=== PATIENT | female | born 1985 | race Caucasian/White ===

== ENCOUNTER 2017-12-19 21:53 | Emergency (ER) | payer MEDICAID ==
[2017-12-19] MEDS ORDERED: FAMOTIDINE 20 MG TABLET PO STA (22:38)
[2017-12-19] MEDS ORDERED: MAG HYDROX/AL HYDROX/SIMETH 30 ML UDC PO STA (22:38)
[2017-12-19] MEDS ORDERED: LIDOCAINE VISCOUS 2% 15 ML UDC MM STA (22:38)
[2017-12-19 22:39] LABS: BASOPHILS # (AUTO) 0.1 10^3/uL (0.0-0.1); BASOPHILS % (AUTO) 0.7 %; EOSINOPHILS # (AUTO) 0.2 10^3/uL (0.0-0.7); EOSINOPHILS % (AUTO) 1.6 %; HGB - HEMOGLOBIN 12.3 g/dL (12.0-16.0); LYMPHOCYTES # (AUTO) 3.9 10^3/uL (1.5-3.5); LYMPHOCYTES % (AUTO) 40.5 %; MEAN CORPUSCULAR HEMOGLOBIN 28.6 pg (27.0-31.0); MEAN CORPUSCULAR HGB CONC 33.3 g/dL (32.0-36.0); MEAN CORPUSCULAR VOLUME 86.1 fL (81.0-99.0); MEAN PLATELET VOLUME 7.7 fL (7.9-10.8); MONOCYTES # (AUTO) 0.6 10^3/uL (0.0-1.0); NEUTROPHILS % (AUTO) 51.2 %; PLT - PLATELET COUNT 350 10^3/uL (130-450); RED BLOOD COUNT 4.28 10^6/uL (4.20-5.40); RED CELL DISTRIBUTION WIDTH 13.5 % (12.0-15.0); WHITE BLOOD COUNT 9.7 x10^3/uL (4.8-10.8)
[2017-12-19 22:41] LABS: GLUCOSE, URINE (UA) NEGATIVE (NEGATIVE); KETONES,URINE (UA) NEGATIVE (NEGATIVE); LEUKOCYTE ESTERASE, URINE NEGATIVE (NEGATIVE); NITRITE,URINE NEGATIVE (NEGATIVE); OCCULT BLOOD,URINE LARGE (NEGATIVE); PH,URINE 5.5 PH (5.0-7.5); PROTEIN,URINE 100 mg/dL (NEGATIVE); UROBILINOGEN,URINE 0.2 (NORMAL) E.U./dL (NORMAL)
[2017-12-19 22:45] LABS: BILIRUBIN,URINE NEGATIVE (NEGATIVE); CLARITY,URINE HAZY (CLEAR); HCG UR QUAL NEGATIVE; ICTOTEST,URINE NEGATIVE
[2017-12-19 22:49] LABS: BACTERIA,URINE Moderate /HPF (None Seen); SQUAMOUS EPITHELIAL CELL,UR MOD Squamous (<= Few)
[2017-12-19 22:50] LABS: MUCUS,URINE Moderate Strands
--- NOTE | 2017-12-19 22:57 | ED Physician Documentation ---
PD HPI ABD PAIN - Stated complaint Stated Complaint: ABD PX - Chief complaint Chief Complaint: Abd Pain - History obtained from History obtained from: Patient, Family - History of Present Illness Timing - onset: How many weeks ago (2) Timing - details: Intermittant, Waxing and waning Quality: Sharp Location: Epigastric Worsened by: Eating Associated symptoms: Nausea. No: Fever, Vomiting, Hematemesis Similar symptoms before: Has not had sx before Recently seen: Not recently seen - Additional information Additional information: Patient is a 32 year old female presenting to the emergency department for abdominal pain. Patient states that it has been going on for the last two weeks. Patient states that it is in her epigastrum. patient states that it gets worse with eating. Review of Systems Ten Systems: 10 systems reviewed and negative Constitutional: denies: Fever, Chills Cardiac: denies: Chest pain / pressure, Palpitations Respiratory: denies: Dyspnea, Cough, Wheezing GI: reports: Abdominal Pain, Nausea. denies: Vomiting, Constipation, Diarrhea : denies: Dysuria, Frequency, Hesitancy PD PAST MEDICAL HISTORY - Past Medical History Past Medical History: Yes Psych: Anxiety - Past Surgical History Past Surgical History: Yes /PATIENT ASSESSMENT COORDINATOR: Tubal ligation - Present Medications Home Medications: Ambulatory Orders Medication Instructions Recorded Confirmed Sertraline [Zoloft] 100 mg PO DAILY 06/30/15 06/30/15 Lidocaine Viscous 2% [Xylocaine 5 ml MM Q4H #1 bottle 12/19/17 Viscous 2%] Ondansetron Odt [Zofran] 4 mg TL Q6H PRN #14 tablet 12/19/17 - Allergies Allergies/Adverse Reactions: Allergies Allergy/AdvReac Type Severity Reaction Status Date / Time No Known Drug Allergies Allergy Verified 12/19/17 22:02 - Social History Does the pt smoke?: No Smoking Status: Never smoker Does the pt drink ETOH?: No Does the pt have substance abuse?: No Substance Use and Type: Marijuana - Immunizations Immunizations are current?: Yes - POLST Patient has POLST: No PD ED PE NORMAL - Vitals Vital signs reviewed: Yes - General General: Alert and oriented X 3, No acute distress - HEENT HEENT: Atraumatic, Moist mucous membranes - Neck Neck: Supple, no meningeal sign - Cardiac Cardiac: RRR - Respiratory Respiratory: No respiratory distress - Abdomen Abdomen: Soft, Non tender, Non distended - Derm Derm: Normal color, Warm and dry - Extremities Extremities: No deformity - Neuro Neuro: Alert and oriented X 3 Eye Opening: Spontaneous - Psych Psych: Normal mood Results - Vitals Vitals: Vital Signs - 24 hr 12/19/17 21:59 Temperature 36.2 C L Heart Rate 72 Respiratory 16 Rate Blood Pressure 127/88 H O2 Saturation 100 Oxygen O2 Source Room air - Labs Labs: Laboratory Tests 12/19/17 12/19/17 22:10 22:31 WBC 9.7 RBC 4.28 Hgb 12.3 Hct 36.9 L MCV 86.1 MCH 28.6 MCHC 33.3 RDW 13.5 Plt Count 350 MPV 7.7 L Neut # 5.0 Lymph # 3.9 H [place] # 0.6 Eos # 0.2 Baso # 0.1 Absolute Nucleated RBC 0.01 Nucleated RBC % 0.1 Urine Color DARK YELLOW Urine Clarity HAZY Urine pH 5.5 Ur Specific [place] >=1.030 H Urine Protein 100 H Urine Glucose (UA) NEGATIVE Urine Ketones NEGATIVE Urine Occult Blood LARGE H Urine Nitrite NEGATIVE Urine Bilirubin NEGATIVE Urine Urobilinogen 0.2 (NORMAL) Ur Leukocyte Esterase NEGATIVE Urine RBC 11-25 H Urine WBC 0-3 Ur Squamous Epith Cells MOD Squamous H Urine Bacteria Moderate H Urine Mucus Moderate Strands Ur Microscopic Review INDICATED Urine Culture Comments NOT INDICATED Urine HCG, Qual NEGATIVE PD MEDICAL DECISION MAKING - ED course Complexity details: reviewed old records, reviewed results, re-evaluated patient , considered differential, d/w patient, d/w family ED course: Abhinav was seen and examined at bedside. patient was well appearing and in no acute distress. Patient's labs were drawn and urine was collected. Patient was treated with a GI cocktail with good relief. patient's diagnostics were within normal limits. patient required no further work up and was stable for discharge with outpatient follow up. Departure - Departure Disposition: 01 Home, Self Care Clinical Impression: Gastroesophageal reflux disease Condition: Good Instructions: ED GERD Follow-Up: Debbi Downey ARNP [Primary Care Provider] - Within 3 Days Prescriptions: Lidocaine Viscous 2% [Xylocaine Viscous 2%] 5 ml MM Q4H #1 bottle Ondansetron Odt [Zofran] 4 mg TL Q6H PRN #14 tablet PRN Reason: Nausea / Vomiting Comments: Your diagnostics today were within normal limits. there is no major abnormality. Your symptoms are likely secondary to gastritis. the first thing to do is to change your diet. You should decrease the amount of fried foods, fatty foods, alcohol and acidic foods. You should also heat smaller meals and not eat before going to bed. You should follow up with your doctor if your symptoms persist. You may return to the emergency department at any time for new, worsening or uncontrollable symptoms.
[2017-12-19 23:00] LABS: ALBUMIN 4.4 g/dL (3.2-5.5); ALBUMIN/GLOBULIN RATIO 1.3 (1.0-2.2); BILIRUBIN,TOTAL 0.6 mg/dL (0.2-1.0); CALCIUM 9.2 mg/dL (8.5-10.3); CREATININE 0.7 mg/dL (0.4-1.0); TOTAL PROTEIN 7.7 g/dL (6.7-8.2)
[2017-12-19 23:07] VITALS: BP 120/99
== END 2017-12-19 23:06 | disposition home or self-care (01) ==
LOC: ED 21:53
DX: K21.9 Gastro-esophageal reflux disease without esophagitis (principal)
CPT/HCPCS: 36415; 80053; 81001; 81025; 83690; 85025; 99283; A9270; 81003; 87086

== ENCOUNTER 2019-10-20 12:59 | Outpatient (CLI) | payer MEDICAID ==
--- NOTE | 2019-10-21 02:37 | XRAY Report ---
Reason: EPIGASTRIC DISCOMFORT Procedure Date: 10/20/2019 Accession Number: [id number] / [id number] Procedure: XR - Abdomen 2 View X-Ray CPT Code: 43622 Final Report FULL RESULT: EXAM: ABDOMEN RADIOGRAPHY EXAM DATE: 10/20/2019 01:29 PM. CLINICAL HISTORY: EPIGASTRIC DISCOMFORT. COMPARISON: None. TECHNIQUE: 2 views. FINDINGS: Lung Bases: Unremarkable. Bowel Gas Pattern: Within normal limits. No dilated loops or abnormal fluid levels. Free Air: None. Other: None. IMPRESSION: Normal 2-view abdomen x-ray. [facility]
== END 2019-10-20 13:00 | disposition home or self-care (01) ==
LOC: DI 12:59
PROVIDERS: ATTEND Registered Nurse
DX: R10.13 Epigastric pain (principal)
CPT/HCPCS: 74019

== ENCOUNTER 2019-12-17 15:13 | Outpatient (CLI) | payer MEDICAID ==
[2019-12-17 15:37] LABS: BASOPHILS % (AUTO) 0.4 %; EOSINOPHILS # (AUTO) 0.2 10^3/uL (0.0-0.7); EOSINOPHILS % (AUTO) 2.1 %; HGB - HEMOGLOBIN 13.3 g/dL (12.0-16.0); LYMPHOCYTES % (AUTO) 32.3 %; MEAN CORPUSCULAR HEMOGLOBIN 28.9 pg (27.0-31.0); MEAN CORPUSCULAR HGB CONC 32.8 g/dL (32.0-36.0); MEAN CORPUSCULAR VOLUME 87.9 fL (81.0-99.0); MEAN PLATELET VOLUME 9.3 fL (7.9-10.8); MONOCYTES # (AUTO) 0.7 10^3/uL (0.0-1.0); MONOCYTES % (AUTO) 7.5 %; NEUTROPHILS # (AUTO) 5.3 10^3/uL (1.5-6.6); NEUTROPHILS % (AUTO) 57.3 %; PLT - PLATELET COUNT 378 10^3/uL (130-450); RED BLOOD COUNT 4.61 10^6/uL (4.20-5.40); RED CELL DISTRIBUTION WIDTH 13.3 % (12.0-15.0); WHITE BLOOD COUNT 9.3 x10^3/uL (4.8-10.8)
[2019-12-17 15:45] LABS: ALBUMIN 4.1 g/dL (3.2-5.5); ALBUMIN/GLOBULIN RATIO 1.1 (1.0-2.2); BILIRUBIN,TOTAL 0.5 mg/dL (0.2-1.0); CALCIUM 8.9 mg/dL (8.5-10.3); CREATININE 0.8 mg/dL (0.4-1.0); TOTAL PROTEIN 7.7 g/dL (6.7-8.2)
== END 2019-12-17 15:14 | disposition home or self-care (01) ==
LOC: LAB 15:13
PROVIDERS: ATTEND Registered Nurse
DX: R10.12 Left upper quadrant pain (principal); R10.13 Epigastric pain
CPT/HCPCS: 36415; 80053; 82150; 83690; 84443; 85025